=== PATIENT | male | born 1965 | race Caucasian/White ===

== ENCOUNTER → 2016-12-19 | Outpatient (CLI) | payer BC ==
--- NOTE | 2016-12-19 10:56 | DI ---
PA /LATERAL CHEST X-RAY, 12/19/2016 10:20 AM : Clinical History: Asthma. Previous Exam: 08/26/2016 and 08/08/2016. There is no acute soft tissue or bony abnormality. The patient is status post CABG and mitral valve r eplacement. There is a dual-chamber pacemaker and the leads are in the appropriate position. There is cardiomegaly. The vessels are more numerous and more plethoric and slightly hazier than on the previ ous exam from 08/08/2016. This would indicate early CHF. There is no acute infiltrate or effusion. Med iastinal structures are normal. There are no pulmonary nodules. Readin. There is no acute infiltrate or effusion. 2. Cardiomegaly with mild early CHF. 3. Status post mitral valve replacement and CABG.
== END ==
LOC: MOB RAD 10:23
PROVIDERS: ATTEND Physician Assistant
DX: J45.909 Unspecified asthma, uncomplicated (principal); I51.7 Cardiomegaly; I50.9 Heart failure, unspecified
CPT/HCPCS: 71020

== ENCOUNTER → 2017-01-10 | Outpatient (CLI) | payer BC ==
--- NOTE | 2017-01-10 15:43 | PE ---
[facility] Interpretive Statements [id number]
== END ==
LOC: RT 10:57
PROVIDERS: ATTEND Physician Assistant Medical
DX: R06.02 Shortness of breath (principal)
CPT/HCPCS: 94060

== ENCOUNTER → 2017-01-27 | Outpatient (CLI) | payer BC ==
[2017-01-27 12:57] LABS: HEMATOCRIT 48.1 % (42.0-52.0); HEMOGLOBIN 16.6 g/dL (14.0-18.0); MEAN CORPUSCULAR HEMOGLOBIN 30.6 PG (27-31); MEAN CORPUSCULAR HGB CONC 34.5 g/dL (33-37); MEAN CORPUSCULAR VOLUME 88.7 FL (80-90); MEAN PLATELET VOLUME 10.1 FL (7.4-12.2); RED BLOOD COUNT 5.42 10^6/uL (4.70-6.10)
[2017-01-27 12:58] LABS: BLOOD UREA NITROGEN 24 mg/dL (7-22); BUN/CREATININE RATIO 21.81 (6-20); EST GLOMERULAR FILTRATION > 60 (>60 ml/min/1.73m(2)); SERUM ALBUMIN 4.9 g/dL (3.5-4.8)
== END ==
LOC: MOB LAB 11:04
PROVIDERS: ATTEND Family Medicine
DX: I50.9 Heart failure, unspecified (principal); E78.5 Hyperlipidemia, unspecified; I10 Essential (primary) hypertension; R94.5 Abnormal results of liver function studies
CPT/HCPCS: 36415; 80053; 83880; 85027

== ENCOUNTER → 2017-02-17 | Outpatient (CLI) | payer BC ==
[2017-02-19 10:31] LABS: HEP B CORE IGM ANTIBODY Negative (Negative); HEPATITIS A IGM Negative (Negative); HEPATITIS B SURFACE AG Negative (Negative)
[2017-02-19 18:06] LABS: ANTI-SMOOTH MUSCLE ANTIBODY Negative (Negative)
== END ==
LOC: LAB 09:06
PROVIDERS: ATTEND Internal Medicine Gastroenterology
DX: R19.8 Other specified symptoms and signs involving the digestive system and abdomen (principal)
CPT/HCPCS: 36415; 86038; 86255; 86705; 86709; 86803; 87340

== ENCOUNTER → 2017-03-07 | Outpatient (CLI) | payer BC | LOC: LAB 15:26 | PROVIDERS: ATTEND Internal Medicine Gastroenterology | DX: R19.8 Other specified symptoms and signs involving the digestive system and abdomen (principal) | CPT/HCPCS: 36415; 87522 ==

== ENCOUNTER → 2017-03-14 | Outpatient (CLI) | payer BC ==
[2017-03-14 09:29] LABS: BLOOD UREA NITROGEN 17 mg/dL (7-22); BUN/CREATININE RATIO 15.45 (6-20); CALCIUM 9.3 mg/dL (8.7-10.7); EST GLOMERULAR FILTRATION > 60 (>60 ml/min/1.73m(2)); SERUM ALBUMIN 4.5 g/dL (3.5-4.8)
== END ==
LOC: LAB 08:18
PROVIDERS: ATTEND Internal Medicine Gastroenterology
DX: R19.8 Other specified symptoms and signs involving the digestive system and abdomen (principal)
CPT/HCPCS: 36415; 80053